=== PATIENT | female | born 1965 | race Caucasian/White ===

== ENCOUNTER 2025-03-24 22:31 | Emergency (ER) | payer OTHER ==
[2025-03-24 22:54] VITALS: TEMP 97.3
[2025-03-24] MEDS ORDERED: EMLA Cream 5 GM TP ONE (23:47)
[2025-03-24] MEDS: EMLA Cream 5 GM TP ONE (23:48)
[2025-03-25] MEDS: XYLOCAINE 1% HCL 20 ML MDV IJ ONE (00:22)
[2025-03-25 01:11] VITALS: BP 119/86; PULSE 85; RESP 18; O2SAT 98
--- NOTE | 2025-03-25 01:17 | ERPHSYRPT ---
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 My friend tried to get it out but the head is stuck in". Triage Nursing Assessment: Pt presents to ER with complaints of tick bite to middle right side of her back. Pt noticed the tick on her back today. 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 Her friend attempted to remove tick from back with tweezers [employer] but the head is burrowed inside the skin. Pt is alert and oriented x 3. Skin is pink, warm, and dry. Respirations are easy and unlabored. Pt denies nausea/vomiting/diarrhea. Denies pain or any other complaints at this time. A small brown area is noted on her back with some surrounded with some redness. Physician History: 60-year-old female presenting after tick bite on hunting trip. Reports was deer hunting, for the last 2 days locally. Today she noticed a tick on her right flank. Her friend assisted her in removing most of the body of the tick, however noticed a small black portion still left in the skin, and presented here for removal. Approximates has been attached to her maximally 2 days minimally 12 hours. Asymptomatic at this time. Minimal surrounding redness around the tick bite. Otherwise no discomfort, pain, induration, purulent discharge from wound. Allergies/Adverse Reactions: codeine Allergy (Severe, Verified 03/24/25 22:44) Anaphylactic Reaction morphine Allergy (Severe, Verified 03/24/25 22:44) Anaphylactic Reaction nut - unspecified Allergy (Severe, Verified 03/24/25 22:44) Shortness of Breath Penicillins Allergy (Intermediate, Verified 03/24/25 22:44) Tightness of Throat latex Adverse Reaction (Intermediate, Verified 03/24/25 22:44) Itching Home Medications: Celecoxib 100 mg [celeBREX 100 MG] 100 mg PO DAILY 03/24/25 [History] Fluticasone/Umeclidin/Vilanter [Trelegy Ellipta 100-62.5-25] 1 dose IH DAILY 03/24/25 [History] Methocarbamol [Robaxin] 750 mg PO BID 03/24/25 [History] Semaglutide [Ozempic] 0.25 mg SQ WEEKLY 03/24/25 [History] Hx Tetanus, Diphtheria Vaccination/Date Given: Yes Hx Influenza Vaccination/Date Given: No Hx Pneumococcal Vaccination/Date Given: No Travel Risk - International Travel Have you traveled outside of the country in past 3 weeks: No - Emerging Infectious Disease Are you exhibiting symptoms associated with any current EIDs: No - Past Medical History Pertinent Past Medical History: Yes Neurological History: Migraines ENT History: No Pertinent History Cardiac History: No Pertinent History Respiratory History: COPD Endocrine Medical History: Diabetes Type II Musculoskeletal History: Osteoarthritis GI Medical History: No Pertinent History History: No Pertinent History Psycho-Social History: No Pertinent History Female Reproductive Disorders: No Pertinent History - Past Surgical History Past Surgical History: Yes Neuro Surgical History: No Pertinent History Cardiac: No Pertinent History Respiratory: No Pertinent History Gastrointestinal: No Pertinent History Genitourinary: No Pertinent History Musculoskeletal: Orthopedic Surgery Female Surgical History: Tubal Ligation Other Surgical History: tail bone surgery - Social History Smoking Status: Light tobacco smoker Drug Use: marijuana - Social Determinants of Health Will the patient participate in the screening: Yes Do you worry about a steady place to live?: No Do you have any problems with any of the following?: No known problems In the past 12 months,have you had to go without utilities?: No Transportation Issues: No Has anyone in your support network made you feel unsafe?: No Have you or anyone in your house had to go w/o enough food: No - Nursing Vital Signs Nursing Vital Signs: Initial Vital Signs Temperature 97.3 F 03/24/25 22:47 Pulse Rate 85 03/24/25 22:47 Respiratory Rate 18 03/24/25 22:47 Blood Pressure 136/76 03/24/25 22:47 O2 Sat by Pulse Oximetry 96 03/24/25 22:47 Pain Scale Pain Intensity 0 - Physical Exam General Appearance: no apparent distress Eye Exam: eyes nml inspection Ears, Nose, Throat Exam: normal ENT inspection Neck Exam: normal inspection Respiratory Exam: normal breath sounds Skin Exam: normal color, warm, dry, other (5 mm area of redness with pinpoint black center on right flank; no tenderness to palpation, no discharge from wound, induration or erythema) SpO2 Interpretation: normal SpO2: 98 Ordered Tests: Medication Summary Discontinued Medications Generic Name Dose Route Start Last Admin Trade Name Freq PRN Reason Stop Dose Admin Doxycycline Hyclate 100 mg 03/25/25 00:19 03/25/25 00:21 Doxycycline Hyclate 100 Mg Tablet PO 03/25/25 00:20 Not Given STAT ONE Doxycycline Hyclate 200 mg 03/25/25 00:21 03/25/25 00:22 Doxycycline Hyclate 100 Mg Tablet PO 03/25/25 00:22 200 mg STAT ONE Administration Doxycycline Hyclate Confirm 03/25/25 00:22 Doxycycline Hyclate 100 Mg Tablet Administered 03/25/25 00:23 Dose 200 mg .ROUTE .STK-MED ONE Lidocaine HCl 5 ml 03/25/25 00:20 03/25/25 00:22 Lidocaine Hcl 1% 20 Ml Mdv 20 Ml Ml IJ 03/25/25 00:21 5 ml STAT ONE Administration Lidocaine/Prilocaine 2.5 gm 03/24/25 23:43 03/24/25 23:48 Lidocaine/Prilocaine 5 Gm 5 Gm Tube TP 03/24/25 23:44 2.5 gm STAT ONE Administration Lidocaine/Prilocaine Confirm 03/24/25 23:47 Lidocaine/Prilocaine 5 Gm 5 Gm Tube Administered 03/24/25 23:48 Dose 5 gm TP .STK-MED ONE - Progress Progress Note: 60-year-old female presenting after tick bite for removal of tick. Patient already removed majority of tick body. Area cleaned with Betadine, 1 cc of lidocaine injected locally, remainder of tick head removed with tip of 11 blade. area irrigated and closely inspected for additional foreign bodies; none identified. Given maximal tick adhesion of 48 hours, given 1 dose of doxycycline for prophylaxis of Lyme disease. Patient tolerated procedure well, no complications. Currently asymptomatic. Counseled on wound care, and tick prevention. discharged home. - Departure Clinical Impression: Tick bite with subsequent removal of tick Condition: Good Critical Care Time: No Referrals: MARKUS PRESCOTT MD [Primary Care Provider, [facility]] - Follow up/PCP as directed Instructions: Removal of Foreign Body in Skin Additional Instructions: Thank you for coming to the Emergency Department today. You were evaluated for tick bite, and a small piece of tick was removed from the bite wound. You were given a single dose of antibiotic which is the treatment to prevent Lyme disease after a tick bite. Keep the area of the wound clean, you can use simple soap and water. Please follow up with your primary care doctor within 3 days. Please return to the Emergency Department if you experience: -Worsening redness or pain around the wound -new pus coming out from the wound -Worsening fevers or chills -New severe or concerning symptoms
== END 2025-03-25 01:20 | disposition home or self-care (01) ==
LOC: ED 22:31
DX: S30.86AA Insect bite (nonvenomous) of flank, initial encounter (principal); S30.85 Superficial foreign body of abdomen, lower back, pelvis and external genitals; W57.XXXA Bitten or stung by nonvenomous insect and other nonvenomous arthropods, initial encounter; E11.9 Type 2 diabetes mellitus without complications; Z79.85 Long-term (current) use of injectable non-insulin antidiabetic drugs; Z79.899 Other long term (current) drug therapy; Z72.0 Tobacco use